=== PATIENT | female | born 1960 | race African-American/Black ===

== ENCOUNTER 2017-08-29 14:35 | Inpatient (IN) | payer OTHER ==
[~2017-08-29] VITALS: Ht 175.3 cm; Wt 78.0 kg
[2017-08-29 15:43] LABS: BASOPHILS % 0.3 % (0.0-2.0); HEMATOCRIT. 40.1 % (36.0-48.0); HEMOGLOBIN. 13.7 g/dL (12.0-16.0); LYMPHOCYTES % 28.2 % (20.0-50.0); MEAN CORPUSCULAR HEMOGLOBIN 30.5 pg (28.0-32.0); MEAN CORPUSCULAR VOLUME 88.8 fL (81.0-99.0); MEAN PLATELET VOLUME 9.5 fl (7.4-10.4); MONOCYTES % 8.5 % (2.0-8.0); PLATELET 296 x1000/uL (130-400); RED BLOOD CELL COUNT 4.51 mill/uL (4.2-5.4); RED CELL DISTRIBUTION WIDTH 14.6 % (11.6-14.6)
[2017-08-29 15:52] LABS: CARBON DIOXIDE 28 mEq/L (21-32); CHLORIDE 100 mEq/L (98-107)
[2017-08-29 15:53] LABS: TROPONIN I < 0.02 ng/mL (0.00-0.04)
[2017-08-29 16:06] LABS: PROTHROMBIN TIME 10.5 sec (9.4-11.6)
[2017-08-29] MEDS ORDERED: ASPIRIN 325MG EC TABLET PO ONE (17:00)
[2017-08-29] MEDS ORDERED: ASPIRIN 325MG EC TABLET PO NR (17:30)
[2017-08-29 19:49] LABS: CLARITY URINE CLEAR (CLEAR); COLOR URINE YELLOW (YELLOW); KETONES URINE NEGATIVE (NEGATIVE); LEUKOCYTE ESTERASE URINE TRACE (NEGATIVE); NITRITE URINE NEGATIVE (NEGATIVE); OCCULT BLOOD URINE NEGATIVE (NEGATIVE); PH URINE 5.5 (4.5-8.0); PROTEIN URINE NEGATIVE (NEGATIVE); SPECIFIC GRAVITY URINE 1.012 (1.005-1.030); UROBILINOGEN URINE 0.2 E.U./dL (0.2-1.0)
[2017-08-29 22:18] VITALS: BP 122/93
[2017-08-30] VITALS: BP 96/63
[2017-08-30] MEDS ORDERED: AMLO10TA80 PO (01:15)
[2017-08-30] MEDS ORDERED: ATOR20TA PO (01:15)
[2017-08-30] MEDS ORDERED: FENU500C PO (01:15)
[2017-08-30] MEDS ORDERED: NABU-90 PO (01:15)
[2017-08-30] MEDS ORDERED: METF500T4 PO (01:15)
[2017-08-30] MEDS ORDERED: LOSA25TA12 PO (01:15)
[2017-08-30] MEDS ORDERED: TURM500C6 PO (01:15)
[2017-08-30] MEDS ORDERED: GABA-290 PO (01:15)
[2017-08-30] MEDS ORDERED: LEVO125T8 PO (01:15)
[2017-08-30 04:00] VITALS: BP 119/64
[2017-08-30 08:00] VITALS: BP 102/66
[2017-08-30] MEDS ORDERED: DEXTROSE 50% WATER 50ML SYRINGE IV PRN (08:15)
[2017-08-30] MEDS ORDERED: NABUMETONE PO SCH (09:00)
[2017-08-30] MEDS ORDERED: LOSARTAN POTASSIUM 25 MG TABLET PO SCH (09:00)
[2017-08-30] MEDS ORDERED: MEDICATION NOT ON FORMULARY EA (Gabapentin 1 TAB) PO SCH (09:00)
[2017-08-30] MEDS ORDERED: [UNRECOGNIZED DRUG - OTHER] PO SCH (09:00)
[2017-08-30] MEDS ORDERED: LOSA50TA20 PO (09:54)
[2017-08-30] MEDS: AMLODIPINE 5MG TABLET PO SCH ×2 (09:55→21:32)
[2017-08-30] MEDS: GABAPENTIN 300MG CAPSULE PO SCH ×2 (09:56→18:12)
[2017-08-30] MEDS: METFORMIN HCL 500MG TABLET PO SCH ×2 (09:56→18:12)
[2017-08-30 10:36] LABS: BASOPHILS % 0.4 % (0.0-2.0); EOSINOPHILS % 2.4 % (0.0-5.0); HEMATOCRIT. 37.2 % (36.0-48.0); HEMOGLOBIN. 12.1 g/dL (12.0-16.0); LYMPHOCYTES % 29.3 % (20.0-50.0); MEAN CORPUSCULAR HEMOGLOBIN 28.5 pg (28.0-32.0); MEAN CORPUSCULAR VOLUME 87.6 fL (81.0-99.0); MEAN PLATELET VOLUME 9.4 fl (7.4-10.4); MONOCYTES % 6.8 % (2.0-8.0); NEUTROPHILS % 61.1 % (40.0-76.0); PLATELET 266 x1000/uL (130-400); RED BLOOD CELL COUNT 4.25 mill/uL (4.2-5.4); RED CELL DISTRIBUTION WIDTH 14.3 % (11.6-14.6)
[2017-08-30 11:10] LABS: CARBON DIOXIDE 29 mEq/L (21-32); CHLORIDE 105 mEq/L (98-107); HDL CHOLESTEROL 40 mg/dL (40-59); LDL CHOLESTEROL 92 mg/dL (5-100)
[2017-08-30] MEDS: LOSARTAN POTASSIUM 50 MG TABLET PO SCH (11:31)
[2017-08-30] MEDS: LEVOTHYROXINE SODIUM 125MCG TABLET PO SCH (11:31)
[2017-08-30] MEDS: NABUMETONE 500MG TABLET PO SCH ×2 (11:31→18:18)
[2017-08-30] MEDS: BLOOD SUGAR DIAGNOSTIC STRIP TEST SCH ×3 (11:35→22:05)
[2017-08-30 11:45] LABS: *AMPHETAMINES SCREEN URINE NEGATIVE (NEGATIVE); *BARBITURATES SCREEN URINE NEGATIVE (NEGATIVE); *BENZODIAZEPINES SCREEN URINE NEGATIVE (NEGATIVE); *COCAINE SCREEN URINE NEGATIVE (NEGATIVE); CANNABINOID URINE SCREEN NEGATIVE (NEGATIVE); METHADONE URINE SCREEN NEGATIVE (NEGATIVE); OPIATES URINE SCREEN NEGATIVE (NEGATIVE); PHENCYCLIDINE URINE SCREEN NEGATIVE (NEGATIVE)
[2017-08-30 12:00] VITALS: BP 118/82
[2017-08-30] MEDS: INSULIN LISPRO 100 UNITS/ML SUBCUT SCH ×3 (12:50→22:06)
[2017-08-30 16:00] VITALS: BP 116/73
[2017-08-30 16:28] LABS: CREATINE KINASE 71 IU/L (26-192); CREATINE KINASE MB FRACTION 1.3 ng/mL (0.5-3.6); TROPONIN I < 0.02 ng/mL (0.00-0.04)
[2017-08-30 20:00] VITALS: BP 104/71
[2017-08-30] MEDS ORDERED: ATORVASTATIN CALCIUM 20MG TABLET PO SCH (21:00)
[2017-08-30 23:38] LABS: CREATINE KINASE 59 IU/L (26-192); CREATINE KINASE MB FRACTION 1.2 ng/mL (0.5-3.6); TROPONIN I < 0.02 ng/mL (0.00-0.04)
[2017-08-31] MEDS: BLOOD SUGAR DIAGNOSTIC STRIP TEST SCH ×2 (07:21→11:51)
[2017-08-31] MEDS: INSULIN LISPRO 100 UNITS/ML SUBCUT SCH ×2 (07:50→12:34)
[2017-08-31 08:25] VITALS: BP 110/72
[2017-08-31] MEDS: METFORMIN HCL 500MG TABLET PO SCH (08:37)
[2017-08-31] MEDS: LOSARTAN POTASSIUM 50 MG TABLET PO SCH (08:37)
[2017-08-31] MEDS: GABAPENTIN 300MG CAPSULE PO SCH ×3 (08:37→13:18)
[2017-08-31] MEDS: LEVOTHYROXINE SODIUM 125MCG TABLET PO SCH (08:37)
[2017-08-31] MEDS: AMLODIPINE 5MG TABLET PO SCH (08:38)
[2017-08-31] MEDS: NABUMETONE 500MG TABLET PO SCH (08:38)
[2017-08-31] MEDS ORDERED: LOSARTAN POTASSIUM 50 MG TABLET PO SCH (09:00)
[2017-08-31] MEDS ORDERED: ASPIRIN 81MG TABLET PO SCH (09:00)
[2017-08-31 12:40] VITALS: BP 108/69
[2017-08-31 16:30] VITALS: BP 105/75
[2017-08-31 18:06] VITALS: BP 105/75
== END 2017-08-31 18:05 | disposition home or self-care (01) | DRG 69 ==
LOC: ER 15:04 → 6WST 17:20 → ENRESERV 20:16
PROVIDERS: ADMIT Internal Medicine; ATTEND Internal Medicine
DX: G45.9 Transient cerebral ischemic attack, unspecified (principal); E11.9 Type 2 diabetes mellitus without complications; E78.5 Hyperlipidemia, unspecified; I10 Essential (primary) hypertension; Z79.1 Long term (current) use of non-steroidal anti-inflammatories (NSAID); Z79.84 Long term (current) use of oral hypoglycemic drugs; Z79.899 Other long term (current) drug therapy; Z88.5 Allergy status to narcotic agent
CPT/HCPCS: 36415; 70450; 70490; 70551; 71045; 80048; 80053; 80061; 80305; 81001; 82550; 82553; 82962; 83880; 84443; 84484; 85025; 85610; 87086; 87186; 93005; 93880; 99285